=== PATIENT | female | born 1960 | race Caucasian/White ===

== ENCOUNTER 2017-01-02 18:40 | Emergency (ER) | payer OTHER, SELFPAY ==
--- NOTE | ~2017-01-02 | MR18 ---
[facility] A Service of [facility] & [facility] RADIOLOGY TEXT RESULTS PATIENT: STEFANO MUNIZ LOCATION: [facility] : 60 UNIT #: [id number] AGE: [address]: Genaro Dickens MD SEX: F ORDER DR: [id number] [facility] [place] [facility] [address] [place], [place] [address] [id number] E MR#: [id number] Acc #: [id number] NAME: STEFANO MUNIZ : 1960 SEX: F STUDY DATE/TIME: 01/02/2017 19:28 UNIT: [facility] ROOM: STUDY DESCRIPTION: MR Brain Wo Contrast Attending Physician: Genaro Dickens M.D. Referring Physician: Imani Dutton A.P.R.N. Ordering Physician: Genaro Dickens M.D. Primary Care Physician: Imani Dutton A.P.R.N. MRI CENTER REPORT This report is preliminary unless electronic signature is present. EXAM MRI brain without contrast. HISTORY Left facial numbness for 3 hours today. Left arm and leg numbness for 3 days. FINDINGS MRI brain was performed without gadolinium. There is no recent ischemia or infarct. No intracranial mass or edema. No focal atrophy or midline shift or extraaxial fluid collection. Minimal probable chronic ischemic changes in the periventricular white matter bilaterally. IMPRESSION 1. No acute findings. 2. No recent ischemia or infarct. 3. Minimal probable chronic ischemic changes in the periventricular white matter bilaterally. Less likely differential considerations include demyelinating disease or vasculitis in the appropriate clinical context. Dictated by... Cheo Hamilton M.D. THIS IS AN ELECTRONICALLY VERIFIED REPORT Cheo Hamilton M.D. at 01/03/2017 11:26 PM DFL/libra TD: 01/03/2017 08:26 JOB #: [id number] MRI CENTER REPORT COPY
--- NOTE | ~2017-01-02 | EKG ---
PATIENT: STEFANO MUNIZ UNIT #: [id number] Ventricular Rate: 69 BPM Atrial Rate: 69 BPM P-R Interval: 144 ms QRS Duration: 86 ms Q-T Interval: 422 ms QTC Calculation(Bezet): 452 ms P [place]: 68 degrees Calculated R [place]: 29 degrees Calculated T [place]: 45 degrees Diagnosis Line: Normal sinus rhythm Diagnosis Line: Normal ECG Diagnosis Line: Diagnosis Line: Confirmed by MARYAN PHAN MD ([id number]) on Diagnosis Line: 01/05/2017 11:56:09 PM INTERPRETING MD: SYLVESTER BELL
[~2017-01-02 18:40] MED LIST: ALBUTEROL20 ml INH; AMITRIPTYLINE H75 MG PO; AMITRIPTYLINE150 MG PO; CALCIUM + D 6001 TA1 PO; CELEBREX PO; CYMBALTA PO; DULOXETINE HCL60 MG PO; ENTRESTO 24 MG1 EACH PO; FLONASE16 GM; GARCINIA CAMBO1 EACH PO; GREEN TEA CAPL1 EACH PO; LEVAQUIN750 MG PO; LIPOZENE PO; MEDROL DOSE PACK PO; NEURONTIN100 MG PO; PREDNISONE PO; PREDNISONE50 MG PO; SEROQUEL PO; SEROQUEL XR150 MG PO; SEROQUEL400 MG PO; STIOLTO RESPIMAT4 GM INH; TRIAMCINOLONE A15 G2 EXT; TYLENOL #3 PO; VIT B-12 PO; VITAMIN B650 M1 PO; WELLBUTRIN SR150 MG PO
[2017-01-02 19:11] LABS: POC - CKMB <1.0 ng/mL (0.0-7.9); POC - TROPONIN <0.05 ng/mL (<=0.05)
[2017-01-02 19:21] LABS: BASOPHIL% 0.4 % (0-2.5); EOSINOPHIL% 0.1 % (0.0-7.0); HEMATOCRIT 40.3 % (35.0-45.0); HEMOGLOBIN 13.6 gm/dL (12.0-16.0); LYMPHOCYTE# 0.9 X10e3 (1.0-3.5); LYMPHOCYTE% 11.4 % (17.0-45.0); MEAN CORPUSCULAR HEMOGLOBIN 30.6 PG (28-34); MEAN CORPUSCULAR HGB CONC 33.6 g/dL (30-36); MEAN PLATELET VOLUME 7.2 FL (6.5-11.5); MONOCYTE# 0.2 X10e3 (0-1.0); NEUTROPHIL# 6.4 X10e3 (1.5-7.1); NEUTROPHIL% 85.1 % (40-75); PLATELET COUNT 307 X10e3 (140-420); RED BLOOD COUNT 4.43 X10e (3.90-5.30); WHITE BLOOD COUNT 7.6 X10e3 (4.0-10.5)
[2017-01-02 19:28] LABS: DIFF IND NO
[2017-01-02 19:34] LABS: PARTIAL THROMBOPLASTIN TIME 26.4 SECONDS (23.5-31.3); PROTHROMBIN TIME (PATIENT) 10.3 SECONDS (9.6-11.5)
[2017-01-02 19:46] LABS: ALBUMIN SERUM 4.2 g/dL (3.5-5.0); ALKALINE PHOSPHATASE 68 U/L (32-92); ALT (SGPT) 16 U/L (10-40); AST (SGOT) 19 U/L (10-42); BILIRUBIN,TOTAL 0.2 mg/dL (0.2-2.0); BLOOD UREA NITROGEN 13 mg/dL (9-23); BUN/CREATININE RATIO 14.44; CARBON DIOXIDE 24 mmol/L (22-31); CHLORIDE 107 mmol/L (100-111); CREATININE SERUM 0.9 mg/dL (0.6-1.4); GLOM FILT RATE Estimated ABOVE60 mL/min (>60); GLUCOSE FASTING 109 mg/dL (70-110); POTASSIUM 4.2 mmol/L (3.5-5.1); SODIUM 139 mmol/L (135-145)
[2017-01-02 19:58] LABS: BILIRUBIN, DIRECT <0.1 mg/dL (0.0-0.2); BILIRUBIN,INDIRECT 0.1 mg/dL (0.0-0.9)
== END 2017-01-02 21:30 | disposition home or self-care (01) ==
LOC: CED 18:40
PROVIDERS: Emergency Medicine
DX: R20.2 Paresthesia of skin (principal); J44.9 Chronic obstructive pulmonary disease, unspecified; I11.0 Hypertensive heart disease with heart failure; I50.9 Heart failure, unspecified; Z88.8 Allergy status to other drugs, medicaments and biological substances; Z79.899 Other long term (current) drug therapy; Z87.891 Personal history of nicotine dependence
CPT/HCPCS: 36415; 70551; 80048; 80076; 82553; 82947; 84484; 85025; 85610; 85730; 93005; 99284